=== PATIENT | female | born 1970 | race Caucasian/White ===

== ENCOUNTER 2018-02-18 10:50 | Emergency (ER) | payer BC ==
[2018-02-18 11:16] VITALS: BP 139/70
--- NOTE | 2018-02-18 12:01 | UC ---
Respiratory Complaint HPI - HPI Summary HPI Summary: 47 year old female presents with 2 week history of occasionally productive cough for yellow sputum, mild shortness of breath, and occasional wheezing. Associated with mild nasal congestion. Has history of RAD with her environmental allergies. Denies fever, chills, ear pain, sore throat, chest pain , palpitations, abdominal pain, nausea, or vomiting. - History of Current Complaint Chief Complaint: UCRespiratory Stated Complaint: COUGH Time Seen by Provider: 02/18/18 11:58 Hx Obtained From: Patient Hx Last Menstrual Period: 02/02/18 Pain Intensity: 0 - Allergies/Home Medications Allergies/Adverse Reactions: Allergies Allergy/AdvReac Type Severity Reaction Status Date / Time apple Allergy Hives Verified 02/18/18 11:13 sulfamethoxazole Allergy Hives Verified 02/18/18 11:13 [From Bactrim] trimethoprim [From Bactrim] Allergy Hives Verified 02/18/18 11:13 CAT/DOGS Allergy ITCHY HIVES Uncoded 07/29/14 09:33 TREES Allergy NASAL Uncoded 07/29/14 09:33 CONGESTION, RUNNY NOSE, SNEEZING Home Medications: Home Medications Albuterol HFA INHALER* [Ventolin HFA Inhaler*] 1 - 2 puff INH Q4H PRN 02/18/18 [ History Confirmed 02/18/18] PMH/Surg Hx/FS Hx/Imm Hx Endocrine History: Hypothyroidism - Surgical History Surgical History: Yes Surgery Procedure, Year, and Place: LAPAROSCOPY, [facility]. 2010 GANGLION CYST LEFT WRIST, [facility]. 1998 CSECTION, [facility]. TONSILLECTOMY AND ADENOIDECTOMY , [facility] - Social History Alcohol Use: Rare Substance Use Type: None Smoking Status (MU): Heavy Every Day Tobacco Smoker Type: Cigarettes Amount Used/How Often: 1/2 PPD Length of Time of Smoking/Using Tobacco: 8 YEARS Have You Smoked in the Last Year: Yes Review of Systems All Other Systems Reviewed And Are Negative: Yes Constitutional: Negative: Fever, Chills Skin: Positive: Negative Eyes: Negative: Drainage, Eye Redness ENT: Positive: Nasal Discharge, Sinus Congestion. Negative: Sore Throat, Ear Ache, Sinus Pain/Tenderness Respiratory: Positive: Shortness Of Breath, Cough, Other - Wheezing Cardiovascular: Negative: Palpitations, Chest Pain Gastrointestinal: Negative: Abdominal Pain, Vomiting, Diarrhea, Nausea Genitourinary: Positive: Negative Musculoskeletal: Positive: Negative Neurological: Positive: Negative Is Patient Immunocompromised?: No Physical Exam - Summary Physical Exam Summary: GENERAL APPEARANCE: Well developed, well nourished, alert and cooperative, and appears to be in no acute distress. EYES: Conjunctiva clear. No discharge. Vision is grossly intact. EARS: External auditory canals and tympanic membranes clear, hearing grossly intact. NOSE: Mild nasal congestion without discharge. THROAT: Oral cavity and pharynx normal. No inflammation, swelling, exudate, or lesions. Teeth and gingiva in good general condition. NECK: Neck supple, non-tender without lymphadenopathy. CARDIAC: Normal S1 and S2. No S3, S4 or murmurs. Rhythm is regular. There is no peripheral edema, cyanosis or pallor. Extremities are warm and well perfused. Capillary refill is less than 2 seconds. LUNGS: Intermittent, scattered mild wheezes bilaterally. Bronchospastic, non- productive cough. ABDOMEN: Positive bowel sounds. Soft, nondistended, nontender. No guarding or rebound. No masses or hepatosplenomegally. MUSKULOSKELETAL: ROM intact to all extremities. No joint erythema or tenderness. Normal muscular development. Normal gait. SKIN: Skin normal color, texture and turgor with no lesions or eruptions. Triage Information Reviewed: Yes Vital Signs: Initial Vital Signs Temp 98.1 F 02/18/18 11:09 Pulse 78 02/18/18 11:09 Resp 17 02/18/18 11:09 BP 139/70 02/18/18 11:09 Pulse Ox 97 02/18/18 11:09 Vital Signs Reviewed: Yes Diagnostic Evaluation - Laboratory O2 Sat by Pulse Oximetry: 97 Re-Evaluation - Re-Evaluation First Eval Re-Evaluation Time: 12:49 Change: Improved Comment: Post-nebulizer treatment patient report breathing and cough improved. Bilateral breath sounds clear. Respiratory Course/Dx - Course Course Of Treatment: 47 year old female presents with 2 week history of occasionally productive cough for yellow sputum, mild shortness of breath, and occasional wheezing. Associated with mild nasal congestion. Has history of RAD with her environmental allergies. Denies fever, chills, ear pain, sore throat, chest pain, palpitations, abdominal pain, nausea, or vomiting. Afebrile. VSS. Exam reveals a well-appearing adult female in no acute distress. Mild nasal congestion, non-productive bronchospastic cough, and mild intermittent bilateral wheezes. She was given a DuoNeb treatment. - Differential Dx/Diagnosis Differential Diagnosis/HQI/PQRI: Asthma, Bronchitis, Influenza, Lower Resp Infection, Sinusitis Provider Diagnosis: Acute bronchitis, Reactive airway disease Discharge - Sign-Out/Discharge Documenting (check all that apply): Patient Departure All imaging exams completed and their final reports reviewed: No Studies - Discharge Plan Condition: Stable Disposition: HOME Prescriptions: Albuterol 2.5MG/3ML (0.083%)* [Ventolin 2.5 MG/3 ML NEB.UBALDO*] 2.5 mg INH Q4H PRN #1 box PRN Reason: Sob/Wheezing Azithromyxin EDMUNDO (NF) [Z-Edmundo (Zithromax) 250 mg tabs #6] 2 tab PO .TODAY, THEN 1 DAILY #6 tab predniSONE TAB* [Deltasone TAB*] 50 mg PO DAILY #5 tab Patient Education Materials: Acute Bronchitis (ED), Wheezing (ED) Referrals: No Primary Care Phys,NOPCP [Primary Care Provider] - Additional Instructions: Your history and exam are consistent with an acute bronchitis with reactive airway disease (asthma-like symptoms). Considering the duration of your symptoms we will treat you with an antibiotic for your infection. Start azithromycin 2 tabs today then 1 tab a day for next 4 days. Take prednisone 50 mg 1 tab daily for 5 days. Continue to use your albuterol inhaler or nebulizer every 4-6 hours as needed for shortness of breath or wheezing Use a saline rinse kit such as Neti Pot or NeilMed at least twice a day to help thin secretions and promote drainage of the sinuses. Use over the counter fluticasone (Flonase) nasal spray 2 sprays each nostril once daily. Take over the counter acetaminophen (Tylenol) or ibuprofen (Advil, Motrin) according to directions as needed for pain or fever. Follow up with your primary care provider in 5 days for a recheck of your symptoms. You blood pressure was also elevated in the clinic today and it is recommended that you followup with your primary care provider to have this rechecked. Seek immediate medical attention in the emergency room if you have fever greater than 100.5 F despite taking acetaminophen or ibuprofen, have chest pain , difficulty breathing, persistent wheezing despite using albuterol inhaler/ nebulizer, or have any worsening of symptoms. - Billing Disposition and Condition Condition: STABLE Disposition: Home - Attestation Statements Provider Attestation: I was available for consult. This patient was seen by the SH[facility]. The patient was not presented to , seen by or examined by dc -Tory Diallo MD
[2018-02-18] MEDS ORDERED: Albuterol/Ipratropium NEB.SOL* Albuterol 2.5 MG/Ipratropium 0.5 MG 3 ML INH ONE (12:07)
== END 2018-02-18 13:01 | disposition home or self-care (01) ==
LOC: UCCORT 10:50
DX: J20.9 Acute bronchitis, unspecified (principal); J45.909 Unspecified asthma, uncomplicated; Z88.1 Allergy status to other antibiotic agents; F17.210 Nicotine dependence, cigarettes, uncomplicated
CPT/HCPCS: 99212; A9270-GY; G0463